=== PATIENT | male | born 1960 | race Caucasian/White ===

== ENCOUNTER 2023-05-19 15:32 | Outpatient (REF) | payer OTHER, SELFPAY ==
[2023-05-22 08:11] LABS: H. pylori Stool Ag, EIA Negative (Negative)
== END 2023-05-20 15:33 | disposition home or self-care (01) ==
LOC: LAB 15:32
PROVIDERS: Family Provider Family Medicine
DX: R10.9 Unspecified abdominal pain (principal); R14.0 Abdominal distension (gaseous); Z12.11 Encounter for screening for malignant neoplasm of colon
CPT/HCPCS: 87338

== ENCOUNTER 2023-05-27 15:33 | Outpatient (OUT) | payer OTHER, SELFPAY ==
[2023-05-27 15:54] LABS: Basophils Percent Auto 0.2 % (0.2-2.0); Eosinophils Percent Auto 0.1 % (0.9-7.0); Hematocrit 36.2 % (42.0-54.0); Hemoglobin 11.2 g/dL (14.0-18.0); Immature Granulocytes Abs Auto 0.17 10^3/uL (0.00-0.03); Immature Granulocytes Pct Auto 1.3 % (0.0-0.5); Lymphocytes Absolute Auto 2.9 10^3/uL (1.2-3.8); Lymphocytes Percent Auto 21.9 % (20.5-60.0); Mean Corpuscular HGB Conc 30.9 g/dL (29.9-35.2); Mean Corpuscular Volume 87.2 fL (80.0-94.0); Mean Platelet Volume 8.3 fL (9.5-13.5); Monocytes Absolute Auto 0.6 10^3/uL (0.3-0.8); Monocytes Percent Auto 4.4 % (1.7-12.0); Neutrophils Absolute Auto 9.7 10^3/uL (1.4-6.5); Neutrophils Percent Auto 72.1 % (43.0-75.0); Platelet Count 348 10^3/uL (150-450); Red Blood Count 4.15 10^6/uL (4.70-6.10); Red Cell Distribution Width 17.4 % (11.0-15.0); White Blood Count 13.4 10^3/uL (4.0-11.0)
[2023-05-27 16:00] LABS: Erythrocyte Sedimentation Rate 50 mm/hr (<=20)
[2023-05-27 16:27] LABS: Alanine Aminotransferase 33 U/L (16-63); Albumin Globulin Ratio 0.8; Albumin Level 2.9 g/dL (3.4-5.0); Alkaline Phosphatase 66 U/L (46-116); Anion Gap 9.8; Aspartate Amino Transferase 14 U/L (15-37); BUN Creatinine Ratio 29.9; Bilirubin Total 0.3 mg/dL (0.2-1.0); C Reactive Protein <0.2 mg/dL (<=1.0); Calcium 8.6 mg/dL (8.5-10.1); Chloride 102 mmol/L (98-107); Estimated GFR (African America >60 (>=60); Estimated GFR (Non-African Ame >60 (>=60); Globulin 3.7 g/dL; Glucose 92 mg/dL (74-106); Potassium 3.8 mmol/L (3.5-5.1); Sodium 139 mmol/L (136-145); Total Protein 6.6 g/dL (6.4-8.2)
[2023-05-31 14:10] LABS: ANA Direct Negative (Negative)
== END 2023-05-27 15:34 | disposition home or self-care (01) ==
PROVIDERS: Family Provider Family Medicine
DX: M25.50 Pain in unspecified joint (principal); R53.83 Other fatigue
CPT/HCPCS: 36415; 80053; 82306; 82607; 85025; 85652; 86038; 86140